=== PATIENT | female | born 1980 | race African-American/Black ===

== ENCOUNTER → 2020-10-25 | Outpatient (CLI) | payer OTHER ==
--- NOTE | 2020-10-25 10:57 | KCIC ---
EXAMINATION: MRI LEFT KNEE WITHOUT IV CONTRAST CLINICAL HISTORY: Left knee pain concerning for medial femoral condyle osteochondral lesion. Pain whe n running for 8 months. NKI. Pain is both anterior and posterior. TECHNIQUE: Multiplanar multisequential images obtained through the knee without intravenous contrast. COMPARISON: None FINDINGS: MENISCI: Medial Meniscus: Intact. Lateral Meniscus: Intact. LIGAMENTS: ACL: Intact PCL: Intact MCL: Intact LCL Complex: Intact CARTILAGE: Medial Femoral Condyle: Normal Medial Tibial Plateau: Normal Lateral Femoral Condyle: Normal Lateral Tibial Plateau: Normal Patella: Normal Trochlea: Normal TENDONS: Distal quadriceps and patellar tendons intact. Popliteus tendon intact. BONES AND MARROW: No evidence of acute fracture or suspicious marrow replacing process. MUSCLES: Muscle bulk and signal intensity within normal limits. JOINT FLUID AND SYNOVIUM: No joint effusion. No synovitis. No Hoover's cyst. IMPRESSION: Unremarkable exam left knee. No meniscus tear or acute ligamentous injury. No osteochondral lesion. Electronically signed by: Chauncey Kim DO (10/25/2020 10:54 AM) [id number]
== END ==
LOC: KCIC MRI 09:29
PROVIDERS: ATTEND Physician Assistant
DX: M17.0 Bilateral primary osteoarthritis of knee (principal); M23.92 Unspecified internal derangement of left knee
CPT/HCPCS: 73721